=== PATIENT | female | born 1980 | race Caucasian/White ===

== ENCOUNTER → 2017-10-12 | Outpatient (CLI) | payer OTHER ==
[~2017-10-12] MED LIST: BIOTIN PO; CHOL10003 PO; LEVO125T5 PO; OXYC-302 PO; PHEN37.53 PO; VITAMIN B12 PO
== END ==
LOC: STAR 08:08
PROVIDERS: ATTEND Surgery
DX: Z02.9 Encounter for administrative examinations, unspecified (principal)